=== PATIENT | female | born 2000 | race Caucasian/White ===

== ENCOUNTER 2021-09-07 14:50 | Emergency (ER) | payer OTHER ==
[~2021-09-07] VITALS: Ht 170.2 cm; Wt 60.8 kg
[2021-09-07 14:53] VITALS: BP 124/90
--- NOTE | 2021-09-07 15:30 | NUR ---
Ultrasound at bedside.
--- NOTE | 2021-09-07 15:47 | NUR ---
labs drawn though iv at this time, urine collected and given to phleb with blood
--- NOTE | 2021-09-07 15:50 | NUR ---
21 y/o female, c/o lower abd pain that radiates to pelvic area for 2 months. pt also c/o fatigue, sob, chest pain, n&v, loss of appetite, fatigue and vaginal irritation. pt states she was seen at urgent care for vaginal discharge and was tx with medication, discharge not present, but is now having uncomfortability in area. sexually active, states she sometimes will sometimes use protection. no hx of sti in the past. has irregular menstration, spotting at this time with clots in urine. skin is pink/warm/dry. a&o x4 with even and steady gait. lungs clear bl, heart rate even and regular. pt denies anyone sick in the household with the same symptoms. pt states pain is 6/10 at this time. vss. patient positioned for comfort. hob elevated. bed down. ermd made aware of pt. pmh: ovarian cysts nka med: antibiotic (unknown) for vaginal dx
[2021-09-07] MEDS: ONDANSETRON 4 MG/2 ML VIAL IVP ONE (15:51)
[2021-09-07 15:53] LABS: BASOPHILS % (AUTO) 0.3 % (0.0-2.0); EOSINOPHILS # (AUTO) 0.1 K/uL (0-0.4); EOSINOPHILS % (AUTO) 0.8 % (0.0-4.0); HEMATOCRIT 39.6 % (36-48); HEMOGLOBIN 13.5 g/dL (12.0-16.0); LYMPHOCYTES # (AUTO) 2.5 K/uL (2.5-16.5); LYMPHOCYTES % (AUTO) 35.9 % (20.5-51.1); MEAN CORPUSCULAR HEMOGLOBIN 30 pg (27-31); MEAN CORPUSCULAR HGB CONC 34 g/dL (33-37); MEAN CORPUSCULAR VOLUME 88.6 fL (80-94); MONOCYTES # (AUTO) 0.6 K/uL (0.8-1.0); MONOCYTES % (AUTO) 8.3 % (1.7-9.3); NEUTROPHILS # (AUTO) 3.7 K/uL (1.8-7.7); NEUTROPHILS % (AUTO) 54.7 % (42.2-75.2); PLATELET COUNT (AUTO) 219 K/uL (140-450); RED BLOOD CELL COUNT(AUTO) 4.47 MIL/uL (4.20-5.40); RED CELL DISTRIBUTION WIDTH 13.6 % (11.6-13.7); WHITE BLOOD COUNT (AUTO) 6.8 K/uL (4.8-10.8)
[2021-09-07] MEDS: NACL 0.9% 1,000 ML IV SCH (15:53)
--- NOTE | 2021-09-07 15:53 | NUR ---
X-Ray at bedside.
[2021-09-07 16:15] LABS: ALBUMIN 4.6 g/dL (3.4-5.0); CARBON DIOXIDE 26.8 mmol/L (21-32); CREATININE 0.6 mg/dL (0.6-1.3); POTASSIUM 3.8 mmol/L (3.5-5.1); TOTAL BILIRUBIN 0.9 mg/dL (0.0-1.0)
[2021-09-07 16:21] LABS: BILIRUBIN,URINE NEGATIVE (NEGATIVE); BLOOD, URINE 3+ (NEGATIVE); COLOR,URINE YELLOW (YELLOW); LEUKOCYTE ESTERASE ,URINE NEGATIVE (NEGATIVE); NITRITE, URINE NEGATIVE (NEGATIVE); PH,URINE 6.5 (5.0-9.0); UGLUCOSE NEGATIVE (NEGATIVE)
[2021-09-07 16:23] LABS: APPEARANCE,URINE HAZY (CLEAR)
[2021-09-07 16:25] LABS: PROTHROMBIN TIME 10.4 secs (10.8-13.4)
[2021-09-07 16:49] LABS: RBC,URINE TOO NUMEROUS TO COUN /HPF (0-5); WBC,URINE NONE SEEN /HPF (0-5)
[2021-09-07] MEDS ORDERED: MEDR10TA PO (17:07)
[2021-09-07] MEDS ORDERED: IBUP-2213 PO (17:07)
[2021-09-07] MEDS ORDERED: ONDA-188 SL (17:07)
--- NOTE | 2021-09-07 17:32 | NUR ---
Patient discharged with v/s stable. Written and verbal after care instructions given and explained. Patient alert, oriented and verbalized understanding of instructions. Ambulatory with spouse to car. All questions addressed prior to discharge. ID band removed. Patient advised to follow up with PMD. Rx of zofran, provera, ibuprofen (sent) given. Patient educated on indication of medication including possible reaction and side effects. Opportunity to ask questions provided and answered. work note given
[2021-09-07 17:38] VITALS: BP 124/90
== END 2021-09-07 17:32 | disposition home or self-care (01) ==
LOC: MED 14:50
DX: N94.6 Dysmenorrhea, unspecified (principal); R11.0 Nausea; R53.83 Other fatigue; Z79.899 Other long term (current) drug therapy
CPT/HCPCS: 36415; 71045; 76856; 80053; 81001; 81025; 85025; 85610; 85730; 93005; 96360; 99285; J2405; J7030; Q0092